=== PATIENT | female | born 2000 | race Hispanic/Latino ===

== ENCOUNTER 2024-12-25 14:38 | Emergency (ER) | payer OTHER, SELFPAY ==
--- NOTE | ~2024-12-25 | XR_ITS ---
EXAMINATION: XR hip LT min 2V DATE: 12/25/2024 15:23 INDICATION: Fall on ice 2 months prior. TECHNIQUE: Anteroposterior and frog-leg lateral views of the left hip were obtained. COMPARISON: None. FINDINGS: Alignment is normal. No fracture. Joint spaces are normal. Soft tissues are unremarkable. IMPRESSION: 1. Negative left hip radiographs. Reviewed, dictated and finalized at location L. STRIAL EQUIPMENT WIRER
[2024-12-25 14:56] VITALS: BP 120/63; PULSE 79; RESP 16; TEMP 36.8; O2SAT 100
--- NOTE | 2024-12-25 15:15 | ED.FALL ---
HPI - Fall General Chief Complaint: Fall Stated Complaint: left side hip pain Time Seen by Provider: 12/25/24 15:10 Source: patient, RN notes reviewed and old records reviewed Mode of arrival: ambulatory Limitations: no limitations History of Present Illness HPI Narrative: 24-year-old female who presents to [facility] with complaints of pain to her left posterior hip. Patient reports 2 months ago patient reports that she slipped and fell onto the ice in the posterior left hip area. Patient states that it hurt for 2 days and then it got better. Patient reports that Sunday night she was sitting at [facility] and she suddenly got a sharp pain in the left posterior hip that was has continued since. Patient reports pain is worse when sitting and lying down and dull ache with standing. Patient is able to ambulate with steady gait. Patient reports that she has taken Tylenol and Ibuprofen for her discomfort and has applied ointment called [place] gel that has camphor and Menthol Patient has full mobility of left hip no complaints of tingling or numbness to left leg, denies any pain to her back or the SI region with none with palpation. MD complaint: fall (2 months ago on the ice) Onset (ago): month(s) (2 months ago) Fall from: standing Place fall occurred: street Loss of consciousness: none Symptoms prior to fall: none Location of injury: other (posterior left hip) Severity: moderate Related Data Allergies Allergy/AdvReac Type Severity Reaction Status Date / Time No Known Allergies Allergy Verified 12/25/24 14:45 Review of Systems Review of Systems: CONSTITUTIONAL: Denies fever, chills, or sweats. EYES: Denies visual changes, redness, or discharge. ENT: Denies rhinorrhea, congestion, sore throat, or otalgia. CARDIOVASCULAR: Denies chest pain, palpitations, or edema. RESPIRATORY: Denies cough or dyspnea. GASTROINTESTINAL: Denies abdominal pain, nausea, vomiting, or diarrhea. GENITOURINARY: Denies dysuria or hematuria. SKIN: Denies rash or itching. MUSCULOSKELETAL: Denies back pain,reports posterior left hip pain, or myalgia. NEUROLOGIC: Denies headache, numbness, or weakness. PSYCHIATRIC: Denies anxiety or depression. All systems reviewed & are unremarkable except as noted in HPI and below PMFSH Past Medical History Medical History (Updated 12/25/24 @ 16:31 by Suzy Phillips NP) History of strep sore throat Asthma Surgical History Surgical History (Updated 12/25/24 @ 16:30 by Suzy Phillips NP) History of tonsillectomy and adenoidectomy Social History Social History (Updated 12/25/24 @ 16:28 by Suzy Phillips NP) Smoking status: Current every day smoker Tobacco type: e-cigarettes/vaping Alcohol intake: current Alcohol use details: social Substance use: unknown Living arrangements: with family Gender identity (if verbalized by the patient): Female Comments At time of signature, agree with nursing past medical, surgical, social and family history. There is no relevant family history pertinent to the presenting complaint Exam Narrative: GENERAL: Well-appearing, well-nourished, and in no acute distress. HEAD: Normocephalic, atraumatic. EYES: PERRLA and EOMI. ENT: Nares clear, no rhinorrhea or epistaxis. Mucous membranes moist. NECK: Supple. no lymphadenopathy CHEST: Clear to auscultation. No respiratory distress.SAO2 100% on room air HEART: Regular rate and rhythm. No murmur heard. Normal peripheral pulses. ABDOMEN: Soft, nontender, nondistended, normal active bowel sounds. EXTREMITIES: Normal range of motion. No edema. reports pain to posterior left hip with sitting and also lying with less pain with standing which had initially gone away 3 days after initial injury 2 months ago and now pain resumed on Sunday out of blue while sitting at restaurant and concern of some bone abnormality voiced, SKIN: Warm, dry, no rash. NEURO: No focal deficits. Alert and oriented x3. Course Course Emergency Course: Patient is aware of diagnosis, understands and agrees to treatment plan.? Anticipatory guidance given.? Patient agrees to follow-up as directed and is aware of reasons to seek care at the emergency department. Portions of this record may have been created with voice recognition software Level of Care: Express Care Visit Vital Signs Vital signs: Vital Signs Temperature 36.8 C 12/25/24 14:56 Pulse Rate 79 12/25/24 14:56 Respiratory Rate 16 12/25/24 14:56 Blood Pressure 120/63 12/25/24 14:56 Pulse Oximetry 100 12/25/24 14:56 Oxygen Delivery Room Air 12/25/24 14:56 Temperature 36.8 C 12/25/24 14:56 Pulse Rate 79 12/25/24 14:56 Respiratory Rate 16 12/25/24 14:56 Blood Pressure 120/63 12/25/24 14:56 Pulse Oximetry 100 12/25/24 14:56 Oxygen Delivery Room Air 12/25/24 14:56 Reviewed MDM - Fall Differential Diagnosis Differential diagnosis: Likely other (pain to posterior left hip, past fall on ice 2 month ago. contusion left posterior hip area) Medical Records Attestation: I reviewed the patient's medical records. Imaging Data Attestation: I personally reviewed and interpreted this imaging study as follows: My impression: negative left hip radiographs Radiologist's impression: [facility] [address] [place] [address] XRay Report Signed Patient: Sayda Hidalgo : 2000 MR#: [id number] Age: 24 Acct:[id number] Loc: [facility] ADM Date: 12/25/24Attending Dr: Ordering Physician: Suzy Phillips APRN Date of Service: 12/25/24 Procedure(s): XR hip LT min 2V Accession Number(s): [id number] cc: INTERNATIONAL SALES MANAGER PHYSICIAN; Suzy Phillips APRN~ EXAMINATION: XR hip LT min 2V DATE: 12/25/2024 15:23 INDICATION: Fall on ice 2 months prior. TECHNIQUE: Anteroposterior and frog-leg lateral views of the left hip were obtained. COMPARISON: None. FINDINGS: Alignment is normal. No fracture. Joint spaces are normal. Soft tissues are unremarkable. IMPRESSION: 1. Negative left hip radiographs. Reviewed, dictated and finalized at location L. SERVICE ORDER CLERK Please be advised this is a medical document. It is intended for [id number] communication. It is written in medical language and may contain unfamiliar abbreviations or verbiage. Medical documents are intended to carry relevant information, facts as evident, and the clinical opinion of the practitioner at the time of the encounter. This report may have been done utilizing a voice recognition system. Attempts have been made to correct errors. However, there may be uncorrected grammatical, spelling, and recognition errors present. The file time of this note does not necessarily represent the time of service. Dictated By: Tenzin Hart MD 12/25/24 1524 Signed By: <Electronically signed by Tenzin Hart MD in OV> Critical Care Time Critical Care Time Critical Care Time: No Discharge Plan Discharge Clinical Impression: Posterior pain of left hip Patient Disposition: Home, Self-Care Condition: Stable Instructions: Antibiotic Form, Hip Pain (ED) Additional Instructions: May apply ice or heat Tylenol for lesser pain Ibuprofen regularly for the next 2-3 days for the inflammation Arthritis Strength Tylenol 2 tabs every 8 hours as needed for pain with food May also use ibuprofen 600 3 times daily with food Steroids as ordered with food Follow-up with PCP if further problems or concerns Ice to the area 20-30 minutes 4-6 times a day Elevate above heart May use topical ointment such as Piero-Zacarias with lidocaine or Biofreeze If your symptoms persist, change or worsen significantly before you can contact your personal physician then please, without delay, go to the emergency department for further evaluation. Follow-up with PCP in 7-10 days or sooner if needed Patient Language: Omani Prescriptions: New prednisone 10 mg tablet 10 mg PO DIRECTED Qty: 21 0RF Rx Instructions: Take with food take as directed 6 tabs day 1, 5 tabs day 2, 4 tabs day 3, 3 tabs day 4, 2 tabs day 5, 1 tab day 6 complete all doses as prescribed Follow-up/Referrals: PHYSICIAN,INTERNATIONAL SALES MANAGER [Primary Care Provider] - Time of Disposition: 15:59 Quality [place] Coma Scale Eyes: Open Verbal: Oriented and Alert Motor: Follows Commands Reed[place] Coma Total Score: 15
== END 2024-12-25 16:05 | disposition home or self-care (01) ==
PROVIDERS: Emergency Provider Registered Nurse
DX: M25.552 Pain in left hip (principal); W00.0XXA Fall on same level due to ice and snow, initial encounter
CPT/HCPCS: 73502; 99213; G0463